=== PATIENT | male | born 1995 | race Caucasian/White ===

== ENCOUNTER 2020-03-07 10:30 | Emergency (ER) | payer SELFPAY ==
--- NOTE | ~2020-03-07 | CT_ITS ---
EXAMINATION: CT brain wo con DATE: 03/07/2020 11:32 INDICATION: Headache. Dizziness. TECHNIQUE: Computed tomography (CT) of the head was performed without intravenous contrast. The mA wa s adjusted according to patient size. Iterative reconstruction technique was employed. The dose-lengt h product was 605.33 mGy-cm. COMPARISON: None FINDINGS: There is no intracranial hemorrhage, acute infarction, or abnormal intracranial mass lesion . The ventricles are normal in size. There is mild mucosal thickening in the ethmoid sinuses. The orb its are normal. The mastoid air cells are normal. IMPRESSION: 1. Normal brain. Reviewed, dictated and finalized at location A. IMPRESSION: 1. Normal brain.
[2020-03-07 10:35] VITALS: BP 154/109; PULSE 90; RESP 20; TEMP 36.4; O2SAT 100
--- NOTE | 2020-03-07 10:42 | ECG_ITS ---
Measurements Intervals [place] Rate: 64 P: 20 FL: 142 QRS: 39 QRSD: 137 T: 35 QT: 356 QTc: 370 Interpretive Statements SINUS RHYTHM RSR' IN V1 OR V2, CONSIDER RIGHT VENTRICULAR HYPERTROPHY OR RIGHT VCD BORDERLINE ECG Electronically Signed On 03-07-2020 11:45:03 CDT by Hany Wolff D.O.
--- NOTE | 2020-03-07 10:53 | PC.NURSE ---
Patient now reports that he was also seeing flashing light and spots earlier. He denies these visual disturbances at this time.
--- NOTE | 2020-03-07 10:58 | PC.NURSE ---
Patient given urinal to provide specimen
--- NOTE | 2020-03-07 11:01 | ED.HA ---
HPI - Headache General Chief Complaint: Headache Stated Complaint: FAITH Time Seen by Provider: 03/07/20 10:54 Source: patient Mode of arrival: ambulatory Limitations: no limitations History of Present Illness HPI Narrative: Patient is a 24-year-old male who presents for evaluation of headache. Patient reports a headache over his right side of his face, migrating to the back of his head. No neck pain. No fever. Patient reports photosensitivity, nausea without vomiting. Patient reports intermittent blurry vision, no blurry vision, currently. He is able to make out asked on his phone and read street signs. Patient reports that he has had a headache every day for 2 months. He states that the headaches do wake him from sleep. No numbness or weakness. Normal gait. No chest pain or abdominal pain. Related Data Home Medications Medication Instructions Recorded Confirmed No Home Medications 03/07/20 03/07/20 Allergies Allergy/AdvReac Type Severity Reaction Status Date / Time Penicillins Allergy Severe Swelling Verified 03/07/20 10:57 Review of Systems Review of Systems: Narrative: CONSTITUTIONAL: Denies fever, chills, or sweats. EYES: No current visual changes or discharge ENT: Denies rhinorrhea, congestion, sore throat, or otalgia. CARDIOVASCULAR: Denies chest pain, palpitations, or edema. RESPIRATORY: Denies cough or dyspnea. GASTROINTESTINAL: Denies abdominal pain, reports nausea without vomiting GENITOURINARY: Denies dysuria or hematuria. SKIN: Denies rash or itching. MUSCULOSKELETAL: Denies back pain, joint pain, or myalgia. NEUROLOGIC: Reports headache without numbness or weakness PMFSH Past Medical History Medical History (Updated 03/07/20 @ 12:08 by Fatoumata Ludwig MD) Epilepsy Surgical History Surgical History (Updated 03/07/20 @ 11:11 by Fatoumata Ludwig MD) No pertinent past surgical history Social History Social History (Updated 03/07/20 @ 11:11 by Fatoumata Ludwig MD) Smoking status: Current every day smoker Tobacco type: cigarettes and e-cigarettes/vaping Alcohol intake: never Substance use: never Gender identity (if verbalized by the patient): Male Exam Narrative: Exam Narrative: GENERAL: Awake, alert, conversant HEAD: Normocephalic, atraumatic. EYES: PERRLA and EOMI. ENT: Nares clear, no rhinorrhea or epistaxis. Mucous membranes moist. NECK: Supple. CHEST: No respiratory distress, breathing even and non labored HEART: Regular rate, sinus rhythm ABDOMEN:Non distended, non tender EXTREMITIES: Normal range of motion. No edema. SKIN: Warm, dry, no rash. NEURO:No focal deficits. Alert and oriented x3. Finger to nose intact bilaterally. EOMs intact without nystagmus. No facial droop/asymmetry noted bilaterally. Grimace intact. Intact sensation in face. Hearing intact bilaterally. Shoulder shrug intact. Strength 5/5 bilateral upper extremities. Strength 5/5 bilateral lower extremities. Reflexes 2+ patellar. Heel to quarles intact bilaterally. Ambulatory exam deferred. Course Vital Signs Vital signs: Vital Signs Temperature 36.4 C 03/07/20 10:35 Pulse Rate 90 03/07/20 10:35 Respiratory Rate 20 03/07/20 10:35 Blood Pressure 154/109 H 03/07/20 10:35 Pulse Oximetry 100 03/07/20 10:35 Temperature 36.4 C 03/07/20 10:35 Pulse Rate 65 03/07/20 12:16 Respiratory Rate 20 03/07/20 12:16 Blood Pressure 90/55 L 03/07/20 12:36 Pulse Oximetry 98 03/07/20 12:16 MDM - Headache MDM Narrative Medical decision making narrative: The patient was evaluated in the emergency department for headache. At the time of initial assessment, ABCs are intact. Vital signs notable for hypertension, patient does not have a history of elevated blood pressure, does not take antihypertensives. Patient's neurological exam is otherwise normal. The fact that he awakens with headache pain is somewhat concerning. Will obtain imaging despite him having a normal neurological exam.
[2020-03-07 11:05] LABS: Basophils Absolute Auto 0.1 K/mm3 (0.0-0.1); Basophils Percent Auto 0.5 % (0.2-1.2); Eosinophils Absolute Auto 0.2 K/mm3 (0-0.3); Eosinophils Percent Auto 1.9 % (0-4.4); Hematocrit 46.3 % (42.0-52.0); Hemoglobin 16.1 g/dL (14.0-18.0); Immature Granulocyte Absolute 0.03 K/mm3 (0.00-0.031); Immature Granulocyte Percent A 0.3 % (0-0.5); Lymphocytes Absolute Auto 2.36 K/mm3 (0.9-3.2); Lymphocytes Percent Auto 25.1 % (18.3-44.2); Mean Corpuscular HGB Conc 34.8 g/dl (32-36); Mean Corpuscular Hemoglobin 31.3 pg (26-34); Mean Corpuscular Volume 90.1 fl (80-100); Mean Platelet Volume 10.8 fl (7.4-10.4); Monocytes Absolute Auto 0.7 K/mm3 (0.1-0.6); Monocytes Percent Auto 7.4 % (2.6-8.5); Neutrophils Absolute Auto 6.1 K/mm3 (1.3-6.7); Neutrophils Percent Auto 64.8 % (45.5-73.1); Platelet Count Result 304 k/mm3 (150-375); Red Blood Count 5.14 M/mm3 (4.6-6.20); Red Cell Distribution Width 11.9 % (11.5-14.5); White Blood Count 9.4 K/mm3 (4.5-10.0)
[2020-03-07] MEDS: ACETAMINOPHEN 500 MG TABLET 1000 MG PO (11:20)
[2020-03-07 11:23] LABS: Alanine Aminotransferase 45 U/L (4-50); Albumin Level 4.9 g/dL (3.5-5.1); Alkaline Phosphatase 90 U/L (38-126); Aspartate Amino Transferase 41 U/L (17-59); Blood Urea Nitrogen 8 mg/dL (9-20); Calcium 9.4 mg/dL (8.4-10.2); Carbon Dioxide 30 mmol/L (22-30); Chloride 103 mmol/L (98-107); Estimated CRCL calculation 139 ml/min; Estimated Glomerular Filt Rate > 60; Glucose 111 mg/dL (75-110); Sodium 140 mmol/L (137-145)
[2020-03-07] MEDS: METOCLOPRAMIDE HCL INJ 10 MG/2 ML VIAL IV PUSH (11:23)
[2020-03-07] MEDS: SODIUM CHLORIDE 0.9% IV 1,000 ML 999 ML IV CONT (11:23)
[2020-03-07 11:38] VITALS: BP 137/111; PULSE 65; RESP 22; O2SAT 97
[2020-03-07] MEDS: MAGNESIUM SULF 2 GM/WATER 50ML 2 GM/50 ML BAG IVPB (11:38)
[2020-03-07 11:45] LABS: Add Urine Microscopic? NO; Appearance Urine Clear (Clear); Bacteria Urine Trace /hpf; Bilirubin Urine Negative (Negative); Blood Urine Negative (Negative); Color Urine Straw (Yellow); Glucose Urine UA Negative (Negative); Ketones Urine Negative (Negative); Leukocyte Esterase Ur Negative LEU/UL (Negative); Nitrate Urine Negative (Negative); Protein Urine Negative (Negative); RBC Urine 0-2 /hpf (0-2); Specific Grav Ur 1.009 (1.001-1.035); Urobilinogen Urine Negative mg/dL (<2.0); WBC Urine 0-3 /hpf
[2020-03-07 12:16] VITALS: BP 114/76; PULSE 65; RESP 20; O2SAT 98
[2020-03-07 12:36] VITALS: BP 90/55
== END 2020-03-07 12:36 | disposition home or self-care (01) ==
PROVIDERS: Emergency Provider Emergency Medicine
DX: G43.009 Migraine without aura, not intractable, without status migrainosus (principal); F17.210 Nicotine dependence, cigarettes, uncomplicated; R94.31 Abnormal electrocardiogram [ECG] [EKG]
CPT/HCPCS: 36415; 70450; 80053; 81003; 85025; 93005; 96365; 96375; 99284; A9270; J1100; J1200; J2765; J3475; J7030